=== PATIENT | female | born 1985 | race Caucasian/White ===

== ENCOUNTER 2018-07-04 06:19 | Observation (INO) | payer BC ==
[2018-07-03 14:22] VITALS: BMI 51.4
[2018-07-04] VITALS (24 sets, daily range): BP systolic 100–137; BP diastolic 51–76; PULSE 63–156; RESP 16–23; Ht 165.1 cm; Wt 138.1 kg
[~2018-07-04] VITALS: Ht 165.1 cm; Wt 138.1 kg
[2018-07-04] MEDS: SOD CHLORIDE 0.9% 1,000 ML IV SCH ×2 (06:00→15:27)
[~2018-07-04 06:19] MED LIST: CEFAZOLIN 2 GM/50 ML (PMX) 50 ML IVPB SCH
--- NOTE | 2018-07-04 08:59 | PREAC ---
Date/Time of Note Date/Time of Note DATE: 07/04/18 TIME: 08:58 Anesthesia Eval and Record Evaluation Time Pre-Procedure Interview DATE: 07/04/18 TIME: 08:58 Age 33 Sex female NPO: 8 hrs Preoperative diagnosis gallstones Planned procedure lap js Past Medical History Past Medical History: Includes Cardio: Dyslipidemia GI: Morbid obesity Surgery & Anesthesia Issues No known issue Meds Anticoagulation: No Beta López within 24 hr: No Reason Beta López not given: Pt. not on B-López No Active Prescriptions or Reported Meds Current Medications Sodium Chloride 1,000 ml @ 75 mls/hr [id number] IV ; Start 07/04/18 at 06:00; Stop 07/04/18 at 19:19 Cefazolin Sodium/ Dextrose 50 ml @ 100 mls/hr PREOP IVPB ; Start 07/04/18 at 06:00; Stop 07/04/18 at 16:00 Meds reviewed: Yes Allergies Coded Allergies: Latex, Natural Rubber (Verified Allergy, Unknown, 07/04/18) naproxen (Verified Allergy, Unknown, 07/04/18) Allergies Reviewed: Yes Labs/Studies Labs Reviewed: Reviewed by anesthesiologist Result Diagram: 07/04/18 0755 Laboratory Tests 07/04/18 07:55 test: Negative Pre-procedure Exam Last vitals Vital Signs Date Temp Pulse Resp B/P (MAP) Pulse Ox O2 O2 Flow FiO2 Time Delivery Rate 07/04/18 98.6 68 16 129/62 96 Room Air 08:05 (84) Airway: Adequate mouth opening, Adequate thyromental dist Mallampati: Mallampati II Teeth: Normal Lung: Normal Heart: Normal ASA Physical Status ASA physical status: 3 Emergency: None Planned Anesthetic General/MAC: ETT Nerve block: TAP (bilateral) Pre-operative Attestations Prior to commencing anesthesia and surgery, the patient was re-evaluated, there was verification of: *The patient's identity *The results of appropriate recent lab work and preoperative vital signs *The above evaluation not changing prior to induction *Anesthetic plan, risk benefits, alternative and complications discussed with patient/family; questions answered; patient/family understands, accepts and w ishes to proceed. ROJELIO MIDDLETON July 04, 2018 08:59
[2018-07-04] MEDS ORDERED: MEPERIDINE 25 MG INJ IV PRN (09:00)
[2018-07-04] MEDS ORDERED: HYDROmorphONE 1 MG/5 ML IV SYRINGE IV PRN ×3 (09:00)
[2018-07-04] MEDS ORDERED: METOCLOPRAMIDE 10 MG INJ IV PRN (09:00)
[2018-07-04] MEDS ORDERED: FENTAnyl 50 MCG/ML VIAL IV PRN ×3 (09:00)
[2018-07-04] MEDS ORDERED: ALBUTEROL 0.083% (NEB) 2.5 MG/3 ML AMP HHN PRN (09:00)
[2018-07-04] MEDS ORDERED: DIPHENHYDRAMINE 50 MG INJ IV PRN (09:00)
[2018-07-04] MEDS ORDERED: ONDANSETRON 4 MG INJ IV PRN (09:00)
[2018-07-04] MEDS ORDERED: FENTAnyl 50 MCG/ML VIAL ONE (09:24)
[2018-07-04] MEDS ORDERED: ROPIVACAINE 0.5 % 30 ML VIAL ONE (09:24)
[2018-07-04] MEDS ORDERED: LIDOCAINE 100 MG SYRINGE ONE (10:14)
[2018-07-04] MEDS ORDERED: PROPOFOL 40 ML ONE (10:14)
[2018-07-04] MEDS ORDERED: CEFAZOLIN 1 GM INJ ONE (10:14)
[2018-07-04] MEDS ORDERED: ROCURONIUM 50 MG INJ ONE (10:14)
[2018-07-04] MEDS ORDERED: SUCCINYLCHOLINE CHLORIDE 100 MG/5 ML SYG IV ONE (10:14)
[2018-07-04] MEDS ORDERED: SUGAMMADEX SODIUM 200 MG/2 ML VIAL IV ONE (10:14)
--- NOTE | 2018-07-04 10:24 | OPR ---
Date/Time of Note Date/Time of Note DATE: 07/04/18 TIME: 10:20 Operative Report Procedure Date: July 04, 2018 Preoperative Diagnosis symptomatic gallstones Postoperative Diagnosis same Operation/Procedure Performed laparoscopic cholecystectomy Surgeon see signature line Gasket Supervisor none Anesthesia Type: general Estimated Blood Loss: 0 - 10 ml's Transfusion none Specimen gallbladder Grafts/Implants none Complications none Pt Condition Post Procedure: stable Indications This is a 33-year-old female with some tender gallstones. She required surgical excision of her gallbladder. She is also morbidly obese with a BMI of 50. This puts that her increased risk for perioperative morbidity and perioperative surgical complications. Risks alternatives benefits and percent were discussed the patient. Additionally due to her morbid obesity her additional risks were also discussed. Potential complications include but not limited to bleeding infection intra-abdominal organ injury, common bile duct injury were discussed the patient. Patient expressed understanding and consents to the operation. Procedure Description Patient is taken to the OR and prepped and draped in usual sterile fashion. Surgical time was performed. IV antibiotics given. Infraumbilical transverse incision was made at the 15 blade. Dissection with cautery skin onto the fascia. The fascia was grasped with Waleska's and divided with curved Fernando scissors. 0 Vicryl stitches placed into the fascia. Arce trocar was introduced. Pneumoperitoneum is established. Midepigastric 12 mm optical trochars placed under direct visualization. Right upper quadrant upper flank 5 mm optical trochars placed under direct visualization. Upon initial inspection there is some adhesions to gallbladder which were taken down bluntly. The gallbladder also appears intrahepatic with evidence of chronic cholecystitis. Initial dome down approach was taken to mobilize the gallbladder. The gallbladder was then grasped by the fundus and retracted in a lateral cephalad direction. [place] graspers were used to dissect out the cystic duct and cystic artery. The critical view was established. The cystic duct is divided with 3 clips proximally one clip distal. The divisions performed laparoscopic scissors. Cystic artery was divided 3 clips proximal clip distal on the divisions performed laparoscopic scissors. The gallbladder was taken off the gallbladder bed. Good hemostasis established in the surgical bed. Minimal suction irrigation was used. The gallbladder is retrieved Endo Catch bag. All ports were removed under direct visualization. 0 Vicryl stitches in the infra umbilical fascial stitch was tied down. Skin is closed and skin mague. A tap block was provided by the anesthesiologist. Dry dressings were applied. Radha TOMAS July 04, 2018 10:24
[2018-07-04] MEDS ORDERED: HYDROCODONE/APAP (5/325) TAB PO ONE (10:30)
[2018-07-04] MEDS ORDERED: OXYCODONE/ACETAMINOPHEN (5/325) TAB PO ONE (12:30)
--- NOTE | 2018-07-04 12:45 | PAC ---
Date/Time of Note Date/Time of Note DATE: 07/04/18 TIME: 12:44 Post-Anesthesia Notes Post-Anesthesia Note Last documented vital signs Vital Signs Date Temp Pulse Resp B/P (MAP) Pulse Ox O2 O2 Flow FiO2 Time Delivery Rate 07/04/18 74 17 122/58 100 Room Air 11:34 (79) 07/04/18 2.0 10:43 07/04/18 98.2 10:28 Activity: WNL Respiratory function: WNL Cardiovascular function: WNL Mental status: Baseline Pain reasonably controlled: Yes Hydration appropriate: Yes Nausea/Vomiting absent: Yes ROJELIO MIDDLETON July 04, 2018 12:44
[2018-07-04] MEDS: HYDROmorphONE 1 MG/ML SYG IV PRN ×2 (12:46→13:02)
[2018-07-04] MEDS ORDERED: HYDROmorphONE 1 MG/ML SYG IV PRN ×2 (13:00)
[2018-07-04] MEDS ORDERED: KETOROLAC 15 MG INJ IV STA (14:24)
[2018-07-04] MEDS ORDERED: ACETAMINOPHEN 325 MG TAB PO PRN (18:30)
[2018-07-04] MEDS: ONDANSETRON 4 MG INJ IV PRN (18:30)
[2018-07-04] MEDS ORDERED: HYDROCODONE/APAP (5/325) TAB PO PRN (18:30)
[2018-07-04] MEDS: morphine 2 MG INJ IV PRN ×2 (18:30→21:42)
[2018-07-04] MEDS: DEXTROSE 5%-0.9% NACL 1,000 ML IV SCH (18:31)
--- NOTE | 2018-07-04 23:10 | HP ---
Date/Time of Note Date/Time of Note DATE: 07/04/18 TIME: 23:06 Assessment/Plan VTE Prophylaxis SCD applied (from Nsg): Yes Pharmacological prophylaxis: other Pharm contraindication: other Lines/Catheters IV Catheter Type (from Nrsg): Peripheral IV Assessment/Plan Hospital Course S/P LAP CHOLECYSTECTOMY OBESITY PLAN IV FLUID SCD CK LABS PAIN MEDS Result Diagram: 07/04/18 0755 07/04/182020 Results 24hrs Laboratory Tests Test 07/04/18 07:55 07/04/18 20:21 White Blood Count 8.7 Red Blood Count 4.67 Hemoglobin 13.3 Hematocrit 41.3 Mean Corpuscular Volume 88.4 Mean Corpuscular Hemoglobin 28.5 L Mean Corpuscular Hemoglobin Concent 32.2 Red Cell Distribution Width 13.4 Platelet Count 269 Mean Platelet Volume 10.3 Immature Granulocytes % 0.200 Neutrophils % 59.0 Lymphocytes % 33.3 Monocytes % 5.9 Eosinophils % 1.0 Basophils % 0.6 Nucleated Red Blood Cells % 0.0 Immature Granulocytes # 0.020 Neutrophils # 5.2 Lymphocytes # 2.9 Monocytes # 0.5 Eosinophils # 0.1 Basophils # 0.1 Nucleated Red Blood Cells # 0.0 Prothrombin Time 12.6 Prothrombin Time Ratio 1.0 INR International Normalized Ratio 0.93 Activated Partial Thromboplast Time 28.3 Sodium Level 140 139 Potassium Level 4.1 4.2 Chloride Level 106 107 Carbon Dioxide Level 26 25 Anion Gap 8 7 Blood Urea Nitrogen 12 12 Creatinine 0.68 0.62 Est Glomerular Filtrat Rate mL/min > 60 > 60 Glucose Level 105 125 Calcium Level 8.8 8.4 Total Bilirubin 1.0 1.0 Direct Bilirubin 0.00 0.00 Indirect Bilirubin 1.0 1.0 Aspartate Amino Transf (AST/SGOT) 24 92 H Alanine Aminotransferase (ALT/SGPT) 48 104 H Alkaline Phosphatase 113 79 Total Protein 7.8 6.7 # Albumin 4.0 3.5 Globulin 3.80 H 3.20 Albumin/Globulin Ratio 1.05 1.09 HPI/ROS Admit Date/Time Admit Date/Time July 04, 2018 at 14:43 ROS s/p lap js c/o abd pain no sob no nausea Constitutional: no complaints, improved Eyes: no complaints ENT: no complaints Respiratory: no complaints Cardiovascular: no complaints Gastrointestinal: pain; No diarrhea, No nausea, No vomiting Genitourinary: no complaints Skin: no complaints Endocrine: no complaints Lymphatic: no complaints Psychological: no complaints, nl mood/affect Immunologic: no complaints PMH/Family/Social Past Medical History Medical History: no pertinent history Medications Current Medications Morphine Sulfate (morphine) 2 mg Q2H PRN IV SEVERE PAIN LEVEL 7-10 Last administered on 07/04/18at 21:42; Admin Dose 2 MG; Start 07/04/18 at 18:30 Acetaminophen/ Hydrocodone Bitart ([place] (5/325)) 1 tab Q4H PRN PO MODERATE PAIN LEVEL 4-6; Start 07/04/18 at 18:30 Dextrose/Sodium Chloride 1,000 ml @ 70 mls/hr [id number] IV Last administered on 07/04/18at 18:31; Admin Dose 70 MLS/HR; Start 07/04/18 at 18:30 Pantoprazole (Protonix Iv) 40 mg DAILY@06 IV ; Start 07/05/18 at 06:00 Acetaminophen (Tylenol Tab) 650 mg Q6H PRN PO MILD PAIN(1-3)OR ELEVATED TEMP; Start 07/04/18 at 18:30 Ondansetron HCl (Zofran Inj) 4 mg Q6H PRN IV NAUSEA AND/OR VOMITING Last administered on 07/04/18at 18:30; Admin Dose 4 MG; Start 07/04/18 at 18:30 Coded Allergies: Latex, Natural Rubber (Verified Allergy, Unknown, 07/04/18) ketorolac (Verified Allergy, Unknown, 07/04/18) naproxen (Verified Allergy, Unknown, 07/04/18) Past Surgical History Past Surgical Hx: noncontributory Family History Significant Family History: no pertinent family hx Social History Alcohol Use: none Smoking Status: Former smoker Exam/Review of Systems Vital Signs Vitals Vital Signs Date Temp Pulse Resp B/P (MAP) Pulse Ox O2 O2 Flow FiO2 Time Delivery Rate 07/04/18 98.1 80 18 123/63 97 20:31 (83) 07/04/18 Nasal 14:30 Cannula 07/04/18 2.0 10:43 Exam Constitutional: alert, oriented, well developed Psych: no complaints, nl mood/affect Head: normocephalic, atraumatic Eyes: nl conjunctiva, EOMI, nl lids, nl sclera, PERRL ENMT: nl external ears & nose, nl lips & teeth, nl nasal mucosa & septum Respiratory: clear to auscultation, normal air movement Cardiovascular: regular rate and rhythm, nl pulses Gastrointestinal: bowel sounds (+), distended, tender Musculoskeletal: nl extremities to inspection Extremities: normal pulses Neurological: CHASSIS DRIVER II-XII intact, nl mental status, nl speech, nl strength Skin: nl turgor; No rash or lesions MYRA NAPIER MD July 04, 2018 23:10
[2018-07-05] MEDS: morphine 2 MG INJ IV PRN ×2 (00:43→02:49)
[2018-07-05 03:02] VITALS: BP 110/63; PULSE 87; RESP 18
[2018-07-05] MEDS: ONDANSETRON 4 MG INJ IV PRN ×3 (05:50→22:35)
[2018-07-05] MEDS ORDERED: PANTOPRAZOLE 40 MG INJ IV SCH (06:00)
[2018-07-05 07:45] VITALS: BP 123/80; PULSE 72
[2018-07-05] MEDS: DEXTROSE 5%-0.9% NACL 1,000 ML IV SCH ×2 (09:02→23:06)
--- NOTE | 2018-07-05 09:47 | PN ---
Date/Time of Note Date/Time of Note DATE: 07/05/18 TIME: 09:47 Assessment/Plan VTE Prophylaxis Risk score (from Nsg)>0 risk: 7 SCD applied (from Nsg): Yes Pharmacological prophylaxis: other Lines/Catheters IV Catheter Type (from Nrsg): Peripheral IV Assessment/Plan Assessment/Plan s/p lap js with pain issues otherwise doing well ok to dc home later today or tomorrow as per patients wishes Result Diagram: 07/05/18 0432 07/05/18 0432 Results 24hrs Laboratory Tests Test 07/04/18 20:21 07/05/18 04:32 Sodium Level 139 139 Potassium Level 4.2 4.4 Chloride Level 107 107 Carbon Dioxide Level 25 27 Anion Gap 7 5 Blood Urea Nitrogen 12 9 Creatinine 0.62 0.61 Est Glomerular Filtrat Rate mL/min > 60 > 60 Glucose Level 125 128 Calcium Level 8.4 8.1 L Total Bilirubin 1.0 0.9 Direct Bilirubin 0.00 0.00 Indirect Bilirubin 1.0 0.9 Aspartate Amino Transf (AST/SGOT) 92 H 64 H Alanine Aminotransferase (ALT/SGPT) 104 H 89 H Alkaline Phosphatase 79 78 Total Protein 6.7 # 6.2 Albumin 3.5 3.0 L Globulin 3.20 3.20 Albumin/Globulin Ratio 1.09 0.93 White Blood Count 10.6 # Red Blood Count 4.13 L Hemoglobin 11.9 L Hematocrit 36.9 L Mean Corpuscular Volume 89.3 Mean Corpuscular Hemoglobin 28.8 L Mean Corpuscular Hemoglobin Concent 32.2 Red Cell Distribution Width 13.6 Platelet Count 275 Mean Platelet Volume 9.5 Immature Granulocytes % 0.200 Neutrophils % 65.3 Lymphocytes % 27.0 Monocytes % 6.3 Eosinophils % 0.9 Basophils % 0.3 Nucleated Red Blood Cells % 0.0 Immature Granulocytes # 0.020 Neutrophils # 6.9 Lymphocytes # 2.9 Monocytes # 0.7 Eosinophils # 0.1 Basophils # 0.0 Nucleated Red Blood Cells # 0.0 Subjective 24 Hr Interval Summary Free Text/Dictation patient with some pain issues but improving Exam/Review of Systems Exam Vitals Vital Signs Date Temp Pulse Resp B/P (MAP) Pulse Ox O2 O2 Flow FiO2 Time Delivery Rate 07/05/18 98.3 72 123/80 93 Room Air 07:45 (94) 07/05/18 18 03:02 07/04/18 2.0 10:43 Intake and Output 07/04/18 07/04/18 07/05/18 1515:00 23:00 07:00 IntakeIntake Total 1100 ml 575 ml 700 ml OutputOutput Total 5 ml BalanceBalance 1095 ml 575 ml 700 ml Exam c/d/i Results Results 24hrs Laboratory Tests Test 07/04/18 20:21 07/05/18 04:32 Sodium Level 139 139 Potassium Level 4.2 4.4 Chloride Level 107 107 Carbon Dioxide Level 25 27 Anion Gap 7 5 Blood Urea Nitrogen 12 9 Creatinine 0.62 0.61 Est Glomerular Filtrat Rate mL/min > 60 > 60 Glucose Level 125 128 Calcium Level 8.4 8.1 L Total Bilirubin 1.0 0.9 Direct Bilirubin 0.00 0.00 Indirect Bilirubin 1.0 0.9 Aspartate Amino Transf (AST/SGOT) 92 H 64 H Alanine Aminotransferase (ALT/SGPT) 104 H 89 H Alkaline Phosphatase 79 78 Total Protein 6.7 # 6.2 Albumin 3.5 3.0 L Globulin 3.20 3.20 Albumin/Globulin Ratio 1.09 0.93 White Blood Count 10.6 # Red Blood Count 4.13 L Hemoglobin 11.9 L Hematocrit 36.9 L Mean Corpuscular Volume 89.3 Mean Corpuscular Hemoglobin 28.8 L Mean Corpuscular Hemoglobin Concent 32.2 Red Cell Distribution Width 13.6 Platelet Count 275 Mean Platelet Volume 9.5 Immature Granulocytes % 0.200 Neutrophils % 65.3 Lymphocytes % 27.0 Monocytes % 6.3 Eosinophils % 0.9 Basophils % 0.3 Nucleated Red Blood Cells % 0.0 Immature Granulocytes # 0.020 Neutrophils # 6.9 Lymphocytes # 2.9 Monocytes # 0.7 Eosinophils # 0.1 Basophils # 0.0 Nucleated Red Blood Cells # 0.0 Medications Medication Current Medications Morphine Sulfate (morphine) 2 mg Q2H PRN IV SEVERE PAIN LEVEL 7-10 Last administered on 07/05/18at 02:49; Admin Dose 2 MG; Start 07/04/18 at 18:30 Acetaminophen/ Hydrocodone Bitart ([place] (5/325)) 1 tab Q4H PRN PO MODERATE PAIN LEVEL 4-6 Last administered on 07/05/18at 05:50; Admin Dose 1 TAB; Start 07/04/18 at 18:30 Dextrose/Sodium Chloride 1,000 ml @ 70 mls/hr [id number] IV Last administered on 07/05/18at 09:02; Admin Dose 70 MLS/HR; Start 07/04/18 at 18:30 Pantoprazole (Protonix Iv) 40 mg DAILY@06 IV Last administered on 07/05/18at 05:43; Admin Dose 40 MG; Start 07/05/18 at 06:00 Acetaminophen (Tylenol Tab) 650 mg Q6H PRN PO MILD PAIN(1-3)OR ELEVATED TEMP; Start 07/04/18 at 18:30 Ondansetron HCl (Zofran Inj) 4 mg Q6H PRN IV NAUSEA AND/OR VOMITING Last administered on 07/05/18at 05:50; Admin Dose 4 MG; Start 07/04/18 at 18:30 Radha TOMAS July 05, 2018 09:47
--- NOTE | 2018-07-05 11:23 | PN ---
Date/Time of Note Date/Time of Note DATE: 07/05/18 TIME: 11:20 Assessment/Plan VTE Prophylaxis Risk score (from Ns)>0 risk: 6 [place] [facility] [place] SCD contraindicated: low risk/ambulating Pharmacological prophylaxis: NA/contraindicated Pharm contraindication: low risk/ambulating Lines/Catheters IV Catheter Type (from [facility]): Peripheral IV Assessment/Plan Hospital Course 1. S/P LAP CHOLECYSTECTOMY 2. Morbid OBESITY 3. Anemia 4. Transaminitis trending down 5. Postoperative nausea Assessment/Plan -c/w IV FLUID -SCD bilaterally -soft diet is not tolerated. -nausea, Zofran. -ambulating -PAIN MEDS -nausea -start Tramadol, pt can be allergic to norco -dc planning Result Diagram: 07/05/1843107/05/182 Results 24hrs Laboratory Tests Test 07/04/18 20:21 07/05/18 04:32 Sodium Level 139 139 Potassium Level 4.2 4.4 Chloride Level 107 107 Carbon Dioxide Level 25 27 Anion Gap 7 5 Blood Urea Nitrogen 12 9 Creatinine 0.62 0.61 Est Glomerular Filtrat Rate mL/min > 60 > 60 Glucose Level 125 128 Calcium Level 8.4 8.1 L Total Bilirubin 1.0 0.9 Direct Bilirubin 0.00 0.00 Indirect Bilirubin 1.0 0.9 Aspartate Amino Transf (AST/SGOT) 92 H 64 H Alanine Aminotransferase (ALT/SGPT) 104 H 89 H Alkaline Phosphatase 79 78 Total Protein 6.7 # 6.2 Albumin 3.5 3.0 L Globulin 3.20 3.20 Albumin/Globulin Ratio 1.09 0.93 White Blood Count 10.6 # Red Blood Count 4.13 L Hemoglobin 11.9 L Hematocrit 36.9 L Mean Corpuscular Volume 89.3 Mean Corpuscular Hemoglobin 28.8 L Mean Corpuscular Hemoglobin Concent 32.2 Red Cell Distribution Width 13.6 Platelet Count 275 Mean Platelet Volume 9.5 Immature Granulocytes % 0.200 Neutrophils % 65.3 Lymphocytes % 27.0 Monocytes % 6.3 Eosinophils % 0.9 Basophils % 0.3 Nucleated Red Blood Cells % 0.0 Immature Granulocytes # 0.020 Neutrophils # 6.9 Lymphocytes # 2.9 Monocytes # 0.7 Eosinophils # 0.1 Basophils # 0.0 Nucleated Red Blood Cells # 0.0 Subjective 24 Hr Interval Summary Gastrointestinal: nausea Exam/Review of Systems Exam Vitals Vital Signs Date Temp Pulse Resp B/P (MAP) Pulse Ox O2 O2 Flow FiO2 Time Delivery Rate 07/05/18 98.3 72 123/80 93 Room Air 07:45 (94) 07/05/18 18 03:02 07/04/18 2.0 10:43 Intake and Output 07/04/18 07/04/18 07/05/18 1515:00 23:00 07:00 IntakeIntake Total 1100 ml 575 ml 700 ml OutputOutput Total 5 ml BalanceBalance 1095 ml 575 ml 700 ml Constitutional: alert, oriented Psych: no complaints Head: normocephalic Neck: supple Respiratory: clear to auscultation Cardiovascular: regular rate and rhythm Gastrointestinal: soft Genitourinary - Female: CVA tenderness; No nl adnexae, No nl external genitalia, No CMT, No uterus, No other Results Results 24hrs Laboratory Tests Test 07/04/18 20:21 07/05/18 04:32 Sodium Level 139 139 Potassium Level 4.2 4.4 Chloride Level 107 107 Carbon Dioxide Level 25 27 Anion Gap 7 5 Blood Urea Nitrogen 12 9 Creatinine 0.62 0.61 Est Glomerular Filtrat Rate mL/min > 60 > 60 Glucose Level 125 128 Calcium Level 8.4 8.1 L Total Bilirubin 1.0 0.9 Direct Bilirubin 0.00 0.00 Indirect Bilirubin 1.0 0.9 Aspartate Amino Transf (AST/SGOT) 92 H 64 H Alanine Aminotransferase (ALT/SGPT) 104 H 89 H Alkaline Phosphatase 79 78 Total Protein 6.7 # 6.2 Albumin 3.5 3.0 L Globulin 3.20 3.20 Albumin/Globulin Ratio 1.09 0.93 White Blood Count 10.6 # Red Blood Count 4.13 L Hemoglobin 11.9 L Hematocrit 36.9 L Mean Corpuscular Volume 89.3 Mean Corpuscular Hemoglobin 28.8 L Mean Corpuscular Hemoglobin Concent 32.2 Red Cell Distribution Width 13.6 Platelet Count 275 Mean Platelet Volume 9.5 Immature Granulocytes % 0.200 Neutrophils % 65.3 Lymphocytes % 27.0 Monocytes % 6.3 Eosinophils % 0.9 Basophils % 0.3 Nucleated Red Blood Cells % 0.0 Immature Granulocytes # 0.020 Neutrophils # 6.9 Lymphocytes # 2.9 Monocytes # 0.7 Eosinophils # 0.1 Basophils # 0.0 Nucleated Red Blood Cells # 0.0 Medications Medication Current Medications Morphine Sulfate (morphine) 2 mg Q2H PRN IV SEVERE PAIN LEVEL 7-10 Last administered on 07/05/18 02:49; Admin Dose 2 MG; Start 07/04/18 at 18:30 Acetaminophen/ Hydrocodone Bitart ([place] (5/325)) 1 tab Q4H PRN PO MODERATE PAIN LEVEL 4-6 Last administered on 07/05/18 05:50; Admin Dose 1 TAB; Start 07/04/18 at 18:30 Dextrose/Sodium Chloride 1,000 ml @ 70 mls/hr [id number] IV Last administered on 07/05/18 09:02; Admin Dose 70 MLS/HR; Start 07/04/18 at 18:30 Pantoprazole (Protonix Iv) 40 mg DAILY@06 IV Last administered on 07/05/18at 05:43; Admin Dose 40 MG; Start 07/05/18 at 06:00 Acetaminophen (Tylenol Tab) 650 mg Q6H PRN PO MILD PAIN(1-3)OR ELEVATED TEMP; Start 07/04/18 at 18:30 Ondansetron HCl (Zofran Inj) 4 mg Q6H PRN IV NAUSEA AND/OR VOMITING Last administered on 07/05/18at 05:50; Admin Dose 4 MG; Start 07/04/18 at 18:30 JASON KEENE July 05, 2018 11:23
[2018-07-05] MEDS: OXYCODONE/ACETAMINOPHEN (5/325) TAB PO PRN ×3 (11:32→22:35)
[2018-07-05 14:35] VITALS: BP 106/58; PULSE 74; RESP 16
[2018-07-05 20:40] VITALS: BP 113/59; PULSE 56; RESP 18
[2018-07-06 02:30] VITALS: BP 108/59; PULSE 77; RESP 16
[2018-07-06] MEDS ORDERED: PANTOPRAZOLE (EC) 40 MG TAB PO SCH (06:00)
[2018-07-06 08:00] VITALS: BP 150/62; PULSE 86; RESP 18
--- NOTE | 2018-07-06 09:13 | DS ---
Date/Time of Note Date/Time of Note DATE: 07/06/18 TIME: 09:13 Discharge Summary Admission/Discharge Info Admit Date/Time July 04, 2018 at 14:43 Discharge Date/Time Discharge Diagnosis s/p cholecystectomy Patient Condition: Stable Consults Dr Barry surgeon Procedures laparoscopic cholecystectomy Hospital Course Pt was admitted (incomplete database) and underwent a laparoscopic cholecystectomy by dr Barry. This is a patient who had laparoscopic cholecystectomy on 07/04, postoperative, she continued to have a lot of pain and nausea. We had to keep her in the house for control of the pain. pt had IV FLUIDs while NPO and soft diet was not tolerated by her. Pt is ambulated, but still has pain and constipation. She was given for nausea, Zofran. PAIN MEDS was chahged to Tramadol, because pt can be allergic to norco. dr Berrios consulted pt postoperatively. He cleared her for d/c. 1. S/P LAP CHOLECYSTECTOMY 2. Morbid OBESITY 3. Anemia 4. Transaminitis trending down 5. Postoperative nausea 6. Prediabetes Spoke to pt to have a low fat low cholesterol diet and try to lose weight, found that she is prediabetic and we spoke about life changes she can do and exercises. Home Meds No Active Prescriptions or Reported Meds Primary Care Provider Pattie Maya MD Time spent on discharge: < 30 minutes Pending Labs Laboratory Tests Test 07/06/18 05:51 Sodium Level 137 mmol/L (135-144) Potassium Level 4.3 mmol/L (3.5-5.1) Chloride Level 103 mmol/L (97-110) Carbon Dioxide Level 31 mmol/L (21-31) Anion Gap 3 (5-13) Blood Urea Nitrogen 7 mg/dl (7-20) Creatinine 0.75 mg/dl (0.44-1.00) Est Glomerular Filtrat Rate mL/min > 60 mL/min (>60) Glucose Level 108 mg/dl (70-220) Hemoglobin A1c 5.7 % (0-5.9) Calcium Level 8.5 mg/dl (8.4-10.2) Total Bilirubin 0.7 mg/dl (0.2-1.3) Direct Bilirubin 0.00 mg/dl (0.00-0.20) Indirect Bilirubin 0.7 mg/dl (0-1.1) Aspartate Amino Transf (AST/SGOT) 46 IU/L (15-46) Alanine Aminotransferase (ALT/SGPT) 82 IU/L (13-69) Alkaline Phosphatase 77 IU/L (42-121) Total Protein 6.3 g/dl (6.1-8.1) Albumin 3.2 g/dl (3.3-4.9) Globulin 3.10 g/dl (1.3-3.2) Albumin/Globulin Ratio 1.03 JASON KEENE July 06, 2018 09:13
--- NOTE | 2018-07-06 09:14 | PDOCDIS ---
Discharge Instructions DIAGNOSIS Discharge Diagnosis s/p cholecystectomy CONDITION [id number] Patient Condition: [id number] Stable HOME CARE INSTRUCTIONS: [id number] Diet Instructions: Pfavy0l Low Fat /Cholesterol ACTIVITY: [id number] Activity Restrictions: [id number] Slowly Increase Activity Rest between Activity Avoid heavy lifting FOLLOW UP/APPOINTMENTS Follow-up Plan PCP 1 week JASON KEENE July 06, 2018 09:14
[2018-07-06] MEDS ORDERED: NA PHOSPHATE/BIPHOS 133 ML ENEMA PR ONE (09:30)
[2018-07-06] MEDS: OXYCODONE/ACETAMINOPHEN (5/325) TAB PO PRN (11:22)
[2018-07-06] MEDS ORDERED: ONDANSETRON 4 MG TAB PO PRN (11:30)
[2018-07-06 14:00] VITALS: BP 116/58; PULSE 68; RESP 20
[2018-07-06] MEDS: DEXTROSE 5%-0.9% NACL 1,000 ML IV SCH (15:01)
--- NOTE | 2018-07-06 20:02 | PN ---
DATE: 07/06/2018 Postop day #2 status post laparoscopic cholecystectomy. This is a patient who had laparoscopic js cystectomy on 07/04. Postoperative, she continued to have a lot of pain. They had to keep her in [facility] house for control of the pain. OBJECTIVE: GENERAL: Today, the patient is alert, awake, oriented x3. VITAL SIGNS: Temperature maximum 98.8, heart rate 86, respiration 18, blood pressure 150/62, saturat ion 98% room air. The patient states that she had a bowel movement after giving her a Fleet enema. Was tolerating diet. Pain is better under control with Percocet. PHYSICAL EXAMINATION: GENERAL: Awake, alert, oriented. VITAL SIGNS: As mentioned above. HEART: Regular. LUNGS: Clear. ABDOMEN: Protruded with fat, but is soft. Bowel sounds present. No guarding, no rigidity. EXTREMITIES: Lower extremity negative tenderness. LABORATORY DATA: WBC yesterday was 10,600 with 65% segmented, which is normal, hemoglobin 11.9, noemí tocrit 36.9. Chemistry today, BUN and creatinine normal. Sodium and potassium normal. Liver functi on, bilirubin has been normal all along. AST was slightly elevated on postop day #1, but today is 46 , normal. ALT was 100.4, today is 82, still is high, but is coming down. Alkaline phosphatase is no rmal level. IMPRESSION: This is a 33-year-old female who is actually morbidly obese with BMI of 50.7 kilograms p er square meter. ASSESSMENT: Postop, the patient had too much pain, so was kept in the hospital for control of the pa in, which has been under control with Percocet. Liver function is almost normal. Bilirubin has not been up. The patient did have bowel movement a few days, but was given Fleet enema today and it hurt s her to move her bowels. Today, abdomen is quite soft, therefore, from a surgical point of view, [facility] patient can be discharged to be followed by Dr. Ngo in the office. Main hospitalist will decide o n discharging the patient. Dictated By: NATIVIDAD COLVIN MD PS/NTS Conf#: [id number] DID#: [id number] CC: JENIFFER NGO MD;*EndCC*
== END 2018-07-06 18:16 | disposition home or self-care (01) ==
LOC: SDS 06:19 → REC 14:43 → PP2 14:46
PROVIDERS: ADMIT Surgery; ATTEND Internal Medicine Nephrology
DX: K80.10 Calculus of gallbladder with chronic cholecystitis without obstruction (principal); E66.01 Morbid (severe) obesity due to excess calories; Z68.43 Body mass index [BMI] 50.0-59.9, adult; D64.9 Anemia, unspecified; R73.03 Prediabetes
CPT/HCPCS: 47562; 80053; 83036; 84703; 85025; 85610; 85730; 88304; C9113; J0690; J1170; J2001; J2270; J2405; J2795; J3010; J7042; Z7500; Z7512; Z7610; G0378

== ENCOUNTER 2018-07-14 03:07 | Emergency (ER) | payer BC ==
[~2018-07-14] VITALS: Ht 165.1 cm; Wt 133.3 kg
[2018-07-14 03:09] VITALS: Ht 165.1 cm; Wt 133.3 kg
--- NOTE | 2018-07-14 05:13 | ERD ---
ER Documentation Chief Complaint Chief Complaint pt reports bleeding and draiage from incision after choley 7 days ago HPI This is a 33-year-old female with a past medical history of obesity, cholecystitis status post cholecystectomy approximately 1 week ago, evaluated yesterday by her primary care physician yesterday where her mague were removed and Steri-Strips were applied, who is now presenting for a minor wound dehiscence with minimal serosanguineous drainage from the periumbilical surgical site. She denies any purulent drainage. The patient has had waxing and waning aching mild abdominal soreness around her surgical sites, but this is unchanged since her surgery. The patient denies feeling sick recently. The patient denies fever or chills. The patient has had no headache or vision changes. The patient does not endorse neck or back pain. The patient denies lightheadedness or dizziness. The patient has had no chest pain or trouble breathing. The patient denies nausea or vomiting. The patient denies changes to bowel movements or urination. The patient has had no focal deficits. The patient has had no weakness or numbness or tingling to the face or extremities. ROS All systems reviewed and are negative except as per history of present illness. Medications Home Meds No Active Prescriptions or Reported Meds Allergies Allergies: Coded Allergies: Latex, Natural Rubber (Verified Allergy, Unknown, 07/04/18) ketorolac (Verified Allergy, Unknown, 07/04/18) naproxen (Verified Allergy, Unknown, 07/04/18) PMhx/Soc History of Surgery: Yes (CHOLECYSTECTOMY ) Anesthesia Reaction: No Hx Neurological Disorder: No Hx Respiratory Disorders: No Hx Cardiac Disorders: No Hx Psychiatric Problems: No Hx Miscellaneous Medical Probl: No Hx Alcohol Use: No Hx Substance Use: No Hx Tobacco Use: Yes (QUIT 1 YR AGO) Smoking Status: Former smoker FmHx Family History: No diabetes Physical Exam Vitals Vital Signs Date Temp Pulse Resp B/P (MAP) Pulse Ox O2 O2 Flow FiO2 Time Delivery Rate 07/14/18 98.7 84 20 129/82 100 03:09 (98) Physical Exam Const: No acute distress Head: Atraumatic Eyes: Normal Conjunctiva ENT: Normal External Ears, Nose and Mouth. Neck: Full range of motion. No meningismus. Resp: Clear to auscultation bilaterally Cardio: Regular rate and rhythm, no murmurs Abd: Obese. One 5 cm horizontal surgical site with minimal wound dehiscence just inferior to the umbilicus. Other 1 cm healing surgical sites, uncomplicated. Soft, non tender, non distended. Normal bowel sounds Skin: No petechiae or rashes Back: No midline or flank tenderness Ext: No cyanosis, or edema Neur: Awake and alert Psych: Normal Mood and Affect Procedures/MDM MDM Previous medical records, if available, were reviewed. The patient presents for wound dehiscence. There is no evidence of cellulitis or abscess or other soft tissue infection. The wound was Dermabond did and Steri-Strips were reapplied. PROCEDURE Laceration Repair by me: Anesthesia: Not needed Location: Previous surgical site under the umbilicus Tendon/Joint/Nerves: No injury Foreign body: None detected Technique: Dermabond and 3 Steri-Strips Complexity: No subcutaneous sutures/mucosal repair/edge excision Post Closure Length: 5 cm Patient's bleeding was easily controlled in the department. No evidence of anemia, compartment syndrome, neurologic injury, vascular injury, open joint, tendon laceration, or foreign body. Patient is appropriate for outpatient follow up. 48 hour wound check recommended. Scar minimization instructions given. DISCHARGE Upon reevaluation of the patient, symptoms have improved. No emergent diagnoses were identified. At this time, I feel that the patient stable for discharge. The patient was instructed to follow-up with a primary care physician in 1-3 days. The patient will be given strict precautions with which to return to the emergency department. Prescriptions: None The patient's blood pressure was elevated at greater than 120/80 while in the emergency department. The patient was otherwise stable with no evidence of hypertensive urgency or emergency. The patient does not require admission for blood pressure control. I have discussed with the patient the risks of hypertension. I have instructed the patient to return to the ER for any new or worsening symptoms including chest pain, shortness of breath, headache, blurred vision, confusion, nausea, vomiting or LOC. I have advised the patient to follow up with the primary care physician for outpatient monitoring and treatment for hypertension in 1-3 days. Disclaimer: Inadvertent spelling and grammatical errors are likely due to EHR/dictation software use and do not reflect on the overall quality of patient care. Note that the electronic time recorded on this note does not necessarily reflect the actual time of the patient encounter. Departure Diagnosis: Primary Impression: Wound dehiscence Additional Impression: Status post cholecystectomy Condition: Stable Patient Instructions: Caring for Your Wound, Cholecystectomy, Post Op Wound Check, Bleeding Additional Instructions: Thank you for for coming to [facility] for your care today. Please ask your nurse or provider if you have questions about your care today and do not leave until all your questions have been answered. Please use any medications given as directed and follow-up with your doctor (or the doctor you were referred to) in the next 1-3 days. If you do not have a primary care doctor you may follow up at the [facility] or [facility] (listed below). You may also use motrin and tylenol as needed for fever and/or pain unless instructed otherwise by your provider or nurse. Indications for more urgent follow-up have been discussed, but you may return to the Emergency Department at ANY time for any worrisome or worsening symptoms. If you have abdominal pain, please know that no test or exam you received is perfect and you should follow up within 8 hours for continued pain. If you had any imaging studies today, such as an X-Ray or CT Scan, these studies will be reviewed later by a radiologist. You will be called if there are important findings that were not identified today, so make sure the contact information you provided at registration is correct. If you received any narcotic pain control medicine today, such as Vicodin, Morphine or Dilaudid, your coordination and judgment may be affected for a number of hours. Please do not drive or operate heavy machinery, and you may want someone to assist you at home. If you were given a prescription for narcotic medication, be aware that it is very addictive- use sparingly and only if necessary. PLEASE SEEK FURTHER EVALUATION AND MANAGEMENT AT YOUR DOCTORS OFFICE WITHIN THE NEXT 1-3 DAYS. IT IS YOUR RESPONSIBILITY TO MAKE AN APPOINTMENT FOR FOLOW-UP CARE. IF YOU HAVE A PRIMARY DOCTOR, PLEASE CALL THEIR OFFICE TO SCHEDULE AN APPOINTMENT FOR FOLLOW UP. IF YOU DO NOT HAVE A PRIMARY DOCTOR YOU CAN CALL OUR PHYSICIAN REFERRAL HOTLINE AT IF YOU CAN NOT AFFORD TO SEE A PHYSICIAN YOU CAN CHOSE FROM THE FOLLOWING [facility] CLINICS: [facility] [address] [facility]. [facility] [address] [facility] [address] [facility] [address] [facility] [address] [facility] [facility]. [address] KAROLINA BE MD July 14, 2018 05:11
[2018-07-14 05:35] VITALS: BP 136/81; PULSE 80; RESP 18
== END 2018-07-14 06:06 | disposition home or self-care (01) ==
LOC: E/R 03:07
DX: T81.31XA Disruption of external operation (surgical) wound, not elsewhere classified, initial encounter (principal); Y73.2 Prosthetic and other implants, materials and accessory gastroenterology and urology devices associated with adverse incidents; Z87.891 Personal history of nicotine dependence; Z90.49 Acquired absence of other specified parts of digestive tract